=== PATIENT | female | born 1995 | race Caucasian/White ===

== ENCOUNTER 2018-06-22 07:14 | Day surgery (SDC) | payer MEDICAID ==
[~2018-06-22] VITALS: Ht 160 cm; Wt 65.8 kg
[2018-06-22 07:34] LABS: HEMATOCRIT 42.4 % (36.0-48.0); HEMOGLOBIN 14.9 g/dL (12-16); MCH 31.5 pg (26.0-34.0); MCHC 35.1 g/dL (31.0-37.0); MCV 89.6 fL (80.0-100.0); MEAN PLATELET VOLUME 10.6 fL (7.4-10.4); RBC 4.73 10x6/uL (4.00-5.40); RDW 12.2 % (11.5-14.5); WBC 5.2 10x3/uL (4.8-10.8)
[2018-06-22] MEDS ORDERED: ANUSOL-HC25 MG RC (08:20)
[2018-06-22] MEDS ORDERED: HYDROCODON-ACE1 EAC7 PO (08:20)
[2018-06-22] MEDS ORDERED: ULTRAM50 MG PO (08:21)
[2018-06-22 08:56] VITALS: BP 111/72; Ht 160 cm; Wt 65.8 kg
[2018-06-22 09:07] LABS: HCG URINE NEGATIVE (NEGATIVE)
--- NOTE | 2018-06-24 15:06 | OP ---
PATIENT NAME: LAKSHMI SANDERS MEDICAL RECORD: [id number] :89 LOCATION:D.OPS ADMISSION DATE: SURGEON: LUIS ENRIQUE DAVIS MD DATE OF OPERATION: 06/22/2018 PRINCIPAL DIAGNOSES: 1. Symptomatic external hemorrhoids. 2. Thrombosed external hemorrhoids times 2. POSTOPERATIVE DIAGNOSES: 1. Symptomatic external hemorrhoids. 2. Thrombosed external hemorrhoids times 2. PROCEDURE: Single column hemorrhoidectomy. SURGEON: Luis Enrique Davis MD SUIT MAKER: None. BLOOD LOSS: 25 cc. ANESTHESIA: General. COMPLICATIONS: None. The risks, possible complications, and alternatives to the procedure were explained to the patient. She elects to proceed. The discussion specifically included, but was not limited to, bleeding requiring emergency reoperation, infection, anal stenosis, fecal incontinence as well as possible need for lateral internal sphincterotomy. OPERATIVE COURSE: The patient was conveyed to the operating room electively on 06/22/2018. General anesthesia was induced by the anesthesia staff. The patient was placed in the lithotomy position. The anus and perianal area were sterilely prepped and draped. The buttocks were taped laterally. The 2 thrombosed hemorrhoids were at 5 and 7 o'clock. I grasped both of these. I incised the anoderm between these thrombosed hemorrhoids. I then used the Harmonic scalpel to work toward the anal verge. I swept down the external anal sphincteric muscles as well as the internal sphincteric muscles. I then incised the anoderm down to an apex. This removed a column consisting with internal and external hemorrhoid. Subcutaneous and submucosal flaps were created sharply. I was able to fold some of the mucosa from the 7 o'clock position over to the 5 o'clock position and remove the hemorrhoids from beneath this mucosal flap in a piecemeal fashion. In this way, I was able to treat 2 of the hemorrhoidal columns by removing a single hemorrhoidal column. Hemostasis was achieved with electrocautery. At the apex in the rectum, a 3-0 Vicryl suture was placed in a [id number]-iq-bqead fashion and then I used this [id number] Vicryl in a running locking fashion to close the anal mucosa. Then, I continued this in a running intracuticular fashion out on to the anoderm. I then buried the knot. To reinforced the suture line within the anal mucosa, multiple interrupted OPERATIVE REPORT [id number] LAKSHMI SANDERS horizontal mattress 3-0 Vicryls were placed and then out onto the anoderm interrupted 3-0 Vicryl [place] in a horizontal mattress fashion were utilized. Gelfoam was applied within the anus and the lower rectum. A combination of sterile preparation and Marcaine was used to infiltrate the perianal tissues. Americaine was applied to the external hemorrhoids. The patient was then extubated and conveyed to the post-anesthesia care unit, where she was in a stable condition. She will be dismissed home on Colace, Valium as well as hydrocodone. I will see her in the office in 2-3 weeks. TRANSINT:[id number] Voice Confirmation ID: [id number] DOCUMENT ID: [id number] LUIS ENRIQUE DAVIS MD at 1506 CC: ANNETTE AGUILAR MD [id number] DICTATION DATE: 06/22/18 1422 CHEMICAL CELL CHANGER: 06/22/18 2327 [facility] 06/22/18 [id number] [place] [address]
== END 2018-06-22 15:30 | disposition home or self-care (01) ==
LOC: D.OPS 07:14 → D.PAN 09:45 → D.OPS 15:30
PROVIDERS: Anesthesiology; Surgery
DX: K64.4 Residual hemorrhoidal skin tags (principal); K64.5 Perianal venous thrombosis; Z01.812 Encounter for preprocedural laboratory examination

== ENCOUNTER 2019-06-02 08:42 | Emergency (ER) | payer SELFPAY ==
[~2019-06-02] VITALS: Ht 160 cm; Wt 63.6 kg
[~2019-06-02 08:42] MED LIST: ANUSOL-HC25 MG RC; HYDROCODON-ACE1 EAC7 PO; ULTRAM50 MG PO
[2019-06-02 08:44] VITALS: Ht 160 cm; Wt 63.6 kg
[2019-06-02 09:10] LABS: APPEARANCE CLEAR (CLEAR); BILIRUBIN NEGATIVE (NEGATIVE); COLOR STRAW (YELLOW); GLUCOSE NEGATIVE (NEGATIVE); KETONE NEGATIVE (NEGATIVE); NITRITE NEGATIVE (NEGATIVE); PROTEIN NEGATIVE (NEGATIVE); UROBILINOGEN NORMAL (NORMAL)
[2019-06-02 09:14] LABS: BACTERIA FEW /hpf (NEGATIVE); EPITHELIAL CELLS NSEEN /hpf (0-5); RED CELLS - URINE 0-5 /hpf (0-5); WHITE CELLS - URINE NSEEN /hpf (NEGATIVE)
[2019-06-02 09:26] LABS: BASOPHILS 0.2 % (0-2); EOSINOPHILS 2.1 % (0-7); HEMATOCRIT 40.1 % (36.0-48.0); HEMOGLOBIN 13.9 g/dL (12-16); IMMATURE GRANULOCYTES 0.2 % (0-5); LYMPHOCYTES 35.2 % (15-50); MCH 31.2 pg (26.0-34.0); MCHC 34.7 g/dL (31.0-37.0); MCV 90.1 fL (80.0-100.0); MEAN PLATELET VOLUME 10.2 fL (7.4-10.4); MONOCYTES 7.7 % (2-11); NEUTROPHILS 54.6 % (40-80); PLATELET COUNT 248 10x3/uL (130-400); RBC 4.45 10x6/uL (4.00-5.40); RDW 11.9 % (11.5-14.5); WBC 4.8 10x3/uL (4.8-10.8)
[2019-06-02 09:35] LABS: CALC OSMOLALITY 283 mosm/kg (275-300); CALCIUM 8.6 mg/dL (8.5-10.1); CARBON DIOXIDE 29.5 mmol/L (21.0-32.0); CHLORIDE - SERUM 106 mmol/L (98-107); CREATININE - SERUM 0.7 mg/dL (0.6-1.3); GLUCOSE 97 mg/dL (74-106); POTASSIUM - SERUM 4.1 mmol/L (3.5-5.1); SODIUM 142 mmol/L (136-145); UREA NITROGEN 14 mg/dL (7-18); eGFR NON AFRICAN AMERICAN > 90 mL/min (90-120)
[2019-06-02 09:36] LABS: HCG SERUM POSITIVE (NEGATIVE)
[2019-06-02 09:47] LABS: ALBUMIN 3.7 g/dL (3.4-5.0); ALKALINE PHOSPHATASE 38 U/L (46-116); ALT (SGPT) 36 U/L (10-68); BILIRUBIN - TOTAL 0.89 mg/dL (0.2-1.3); HCG - QUANTITATIVE (MATERNAL) 133 mIU/mL; PROTEIN - SERUM 6.7 g/dL (6.4-8.2)
[2019-06-02 11:24] VITALS: BP 130/74
== END 2019-06-02 11:24 | disposition home or self-care (01) ==
LOC: D.ER 08:42
PROVIDERS: Family Medicine
DX: O20.0 Threatened abortion (principal); Z3A.01 Less than 8 weeks gestation of pregnancy